=== PATIENT | male | born 1990 | race Caucasian/White ===

== ENCOUNTER 2016-11-28 22:23 | Emergency (ER) | payer OTHER ==
[~2016-11-28] VITALS: Ht 185.4 cm; Wt 97.5 kg
[2016-11-28 23:21] LABS: MEAN CORPUSCULAR HEMOGLOBIN 32.1 pg (27.0-33.0); MEAN CORPUSCULAR VOLUME 91.7 fl (80.0-96.0); RED CELL DISTRIBUTION WIDTH 12.7 % (11.5-14.5); WHITE BLOOD COUNT 6.4 K/mm3 (4.0-10.0)
[2016-11-28 23:49] LABS: METHADONE URINE NEGATIVE (NEGATIVE)
[2016-11-28 23:59] LABS: ALBUMIN 4.3 GM/DL (3.2-5.2); ALBUMIN/GLOBULIN RATIO 1.23 (1.00-1.93); ALKALINE PHOSPHATASE 75 U/L (45-117); ALT/SGPT 60 U/L (12-78); ANION GAP 10 MEQ/L (8-16); AST/SGOT 33 U/L (15-37); BILIRUBIN,DIRECT 0.2 MG/DL (0.0-0.2); BILIRUBIN,TOTAL 0.3 MG/DL (0.2-1.0); BLOOD UREA NITROGEN 14 MG/DL (7-18); CALCIUM LEVEL 8.3 MG/DL (8.5-10.1); CARBON DIOXIDE LEVEL 23 MEQ/L (21-32); CHLORIDE LEVEL 114 MEQ/L (98-107); CREATININE FOR GFR 0.99 MG/DL (0.70-1.30); GLOMERULAR FILTRATION RATE > 60.0 (>60); GLUCOSE, FASTING 100 MG/DL (70-105); POTASSIUM SERUM 4.2 MEQ/L (3.5-5.1); SODIUM LEVEL 147 MEQ/L (136-145); TOTAL PROTEIN 7.8 GM/DL (6.4-8.2)
[2016-11-29 07:15] VITALS: BP 147/95
== END 2016-11-29 07:16 | disposition home or self-care (01) ==
LOC: M ED 22:23
DX: F10.129 Alcohol abuse with intoxication, unspecified (principal); F43.20 Adjustment disorder, unspecified; Z88.1 Allergy status to other antibiotic agents
CPT/HCPCS: 80048; 80076; 80306; 84443; 85027; 99285; G0480

== ENCOUNTER → 2017-08-31 | Outpatient (CLI) | payer OTHER ==
--- NOTE | 2017-09-01 08:13 | ECHO ---
DATE OF PROCEDURE: 08/31/2017 AGE: 27 GENDER: Male HEIGHT: 73 inches WEIGHT: 215 pounds BODY SURFACE AREA: 2.22 meter squared REFERRING PHYSICIAN: CORRINA Casarez INDICATION: Palpitations. MEASUREMENTS: 2D MEASUREMENTS: RV - 4.5 cm LV - 5.5 cm Septum 1.1 cm Posterior wall 1.1 cm Aortic root 3.6 cm LA - 4.0 cm LVEF 65% DOPPLER MEASUREMENTS: AV - 1.3 m/s LVOT - 1.0 m/s LVOT diameter - 2.3 cm MV-E 70, A 60, E/E ratio 1.2 Early mitral deceleration time 286 ms E prime 10, A prime 9, E/E prime ratio 7.3 PV - 0.85 m/s RVSP 30 mmHg IVC - 1.9 cm COMMENTS: Normal sinus rhythm/sinus bradycardia without intraventricular conduction disturbance. Left atrial size and left ventricle upper limits of normal in size. Mildly dilated right heart chambers. LV wall thickness was upper limits of normal. On real time imaging from the parasternal, apical and subcostal projections wall motion was symmetrical and normal to hyperkinetic. Normal appearing mitral valvular apparatus and leaflet excursion with no posterior systolic buckling. Three equal size aortic cusps of normal thickness and cusp separation. No apparent intracardiac mass or pericardial effusion. Color flow Doppler study taken from the parasternal and projection shows very mild mitral and mild tricuspid, but no aortic insufficiency (physiological findings). Guided continuous wave Doppler of his aortic valve showed a normal peak systolic velocity against LV outflow tract obstruction. Pulsed and continuous wave Doppler of his LV inflow tract taken from the apical four-chamber projection showed normal diastolic filling velocities against mitral stenosis. There was also a normal filling pattern using pulsed and tissue Doppler of his mitral annulus. His estimated mean left atrial pressure was well within normal limits. Guided continuous wave Doppler of his pulmonary trunk showed a normal peak systolic velocity against RV outflow tract obstruction. Guided continuous wave Doppler of his tricuspid valve allowed our estimation of his right ventricular systolic pressure (upper limits of normal to borderline increased). His inferior vena cava was of normal size with normal respiratory collapse against an elevated central venous pressure. CONCLUSIONS: 1. The above test findings are in keeping with an athletic heart. No structural or functional abnormality to account for a predisposition to palpitations. 2. Borderline left heart chamber enlargement with normal wall thickness and hyperkinetic wall motion. 3. Normal Doppler assessment of LV relaxation. 4. Mildly dilated right heart chambers and motion with estimated pulmonary arterial pressure upper limits of normal. 5. Normal IVC size and collapse against an elevated central venous pressure.
== END ==
LOC: M CARPUL 10:14
PROVIDERS: ATTEND Physician Assistant
DX: I10 Essential (primary) hypertension (principal); R00.2 Palpitations